=== PATIENT | male | born 1995 | race Caucasian/White ===

== ENCOUNTER → 2018-12-19 | Outpatient (CLI) | payer BC ==
--- NOTE | 2018-12-19 16:18 | US ---
LOWER EXTREMITY VENOUS INSUFFICIENCY SIDE PERFORMED: 1) Color flow is present and patency is documented in the following vessels. No DVT or SVT is noted . EIV Common Femoral Vein Deep Femoral Vein Femoral Vein Popliteal Vein Proximal Calf Veins Greater Saph Vein Upper Small Saph Vein 2) There is venous reflux noted at the following venous levels: Right: Mild reflux noted in CFV, GSV, CFV, DFV and FV. Left: EIV, CFV, GSV, and lower FV IMPRESSION: Venous reflux evident within the right and left lower extremity
[2018-12-20 01:06] LABS: Hepatitis A Antibody IgM Non-Reactive (Non-Reactive); Hepatitis B Core IgM Non-Reactive (Non-Reactive)
[2018-12-20 01:48] LABS: HIV 1 AB Non-Reactive (Non-Reactive); HIV AB P24 Non-Reactive (Non-Reactive); HIV P24 AG Non-Reactive (Non-Reactive)
--- NOTE | 2018-12-20 13:10 | P.ARTDOP ---
Arterial Doppler LOWER EXTREMITY ARTERIAL DOPPLER: DATE OF SERVICE: 12/19/2018 Reason for study: Lower leg swelling and weakness. Doppler waveforms: Multiphasic bilaterally throughout. Pulse volume recording: []. Pressure gradients: None. Ankle-brachial indices: Greater than 1 bilaterally. Toe pressures: [] on the right, [] on the left Impression: Normal study.
== END | disposition home or self-care (01) ==
LOC: RADUSWWP 13:43
PROVIDERS: ATTEND Internal Medicine Infectious Disease
DX: I87.8 Other specified disorders of veins (principal); I99.9 Unspecified disorder of circulatory system; M79.10 Myalgia, unspecified site; Z91.89 Other specified personal risk factors, not elsewhere classified
CPT/HCPCS: 36415; 80074; 85652; 86038; 86618; 86780; 87390; 93922; 93970

== ENCOUNTER 2019-06-17 00:04 | Emergency (ER) | payer BC ==
--- NOTE | 2019-06-17 00:42 | ED ---
General Adult HPI - General Chief complaint: Psychiatric Symptoms Stated complaint: mental health Time Seen by Provider: 06/17/19 00:17 Source: patient, family Mode of arrival: ambulatory Limitations: no limitations - History of Present Illness Initial comments: Dictation was produced using [employer] dictation software. please excuse any grammatical, word or spelling errors. Chief Complaint: This 23-year-old male. He has past medical history of residual schizophrenia. He presents today after suicidal attempt. History of Present Illness: 23-year-old male who is brought into the hospital by parents. Patient attempted to hang himself approximate 3-4 hours prior to arrival. Patient denies any history of suicidal ideation the past. According to parents he has been doing online research as to how to successfully hang himself. He states that he put a belt around his neck and hung himself or couple seconds. He did not follow through with it because he did not want to be brain . Patient is a history of residual schizophrenia. Take psychiatric medications regularly. Patient has no complaints at this time. Denies any neck pain. No shortness of breath. No focal neurologic deficits. The ROS documented in this emergency department record has been reviewed and confirmed by me. Those systems with pertinent positive or negative responses have been documented in the HPI. All other systems are other negative and/or noncontributory. PHYSICAL EXAM: General Impression: Alert and oriented x3, not in acute distress HEENT: Normocephalic atraumatic, extra-ocular movements intact, pupils equal and reactive to light bilaterally, mucous membranes moist. Neck: Atraumatic, no carotid bruit amount of tenderness to palpation Cardiovascular: Heart regular rate and rhythm, S1&S2 audible, no murmurs, rubs or gallops Chest: Lungs clear to auscultation bilaterally, no rhonchi, no wheeze, no rales Abdomen: Bowel sounds present, abdomen soft, non-tender, non-distended, no organomegaly Musculoskeletal: Pulses present and equal in all extremities, no peripheral edema Motor: no focal deficits noted Neurological: CN II-XII grossly intact, no focal motor or sensory deficits noted Skin: Intact with no visualized rashes Psych: Flat affect ED course: Patient is a 23-year-old male presents after attempted hanging. Patient is atraumatic. Physical examination is benign. Vital signs upon arrival are within acceptable limits. Given attempted suicide in past medical history of psychiatric disease patient is considered high risk. Laboratory evaluation obtained. CBC, metabolic panel, urine drug screen and salicylates and acetaminophen are unremarkable. CT of the soft tissues of the neck was obtained showing no acute processes. Radiology did report that there was some kyphotic curvature which could relate to positioning or ligamentous injury. Patient has no pain to his neck. He is moving his neck around freely. Patient observed in emergency Department with out any acute issues. Patient medically cleared for EPS evaluation. Given the patient is asymptomatic. There is no clinical suspicion of genetic neck injury at this time. - Related Data Home Medications Medication Instructions Recorded Confirmed Ziprasidone [Geodon] 60 mg PO BID 06/17/19 06/17/19 Allergies Allergy/AdvReac Type Severity Reaction Status Date / Time No Known Allergies Allergy Verified 06/17/19 08:23 Review of Systems ROS Statement: Those systems with pertinent positive or pertinent negative responses have been documented in the HPI. ROS Other: All systems not noted in ROS Statement are negative. Past Medical History Past Medical History: No Reported History History of Any Multi-Drug Resistant Organisms: None Reported Past Surgical History: No Surgical Hx Reported Past Psychological History: Anxiety, Depression, Schizophrenia Smoking Status: Never smoker Past Alcohol Use History: None Reported Past Drug Use History: None Reported General Exam Limitations: no limitations Course Vital Signs 06/17/19 06/17/19 06/17/19 00:09 13:00 15:59 Temperature 98.9 F 98.2 F 97.7 F Pulse Rate 65 69 73 Respiratory 20 16 16 Rate Blood Pressure 138/93 112/74 130/73 O2 Sat by Pulse 97 97 97 Oximetry Medical Decision Making - Lab Data Result diagrams: 06/17/19 00:55 06/17/19 00:55 Lab Results 06/17/19 06/17/19 06/17/19 Range/Units 00:55 00:55 01:32 WBC 6.3 (3.8-10.6) k/uL RBC 4.82 (4.30-5.90) m/uL Hgb 15.7 (13.0-17.5) gm/dL Hct 43.3 (39.0-53.0) % MCV 89.7 (80.0-100.0) fL MCH 32.6 (25.0-35.0) pg MCHC 36.4 (31.0-37.0) g/dL RDW 12.5 (11.5-15.5) % Plt Count 161 (150-450) k/uL Neutrophils % 67 % Lymphocytes % 21 % Monocytes % 7 % Eosinophils % 3 % Basophils % 1 % Neutrophils # 4.2 (1.3-7.7) k/uL Lymphocytes # 1.3 (1.0-4.8) k/uL Monocytes # 0.4 (0-1.0) k/uL Eosinophils # 0.2 (0-0.7) k/uL Basophils # 0.0 (0-0.2) k/uL Sodium 138 (137-145) mmol/L Potassium 4.2 (3.5-5.1) mmol/L Chloride 98 (98-107) mmol/L Carbon Dioxide 28 (22-30) mmol/L Anion Gap 12 mmol/L BUN 19 (9-20) mg/dL Creatinine 1.01 (0.66-1.25) mg/dL Est GFR (CKD-EPI)AfAm >90 (>60 ml/min/1.73 sqM) Est GFR (CKD-EPI)NonAf >90 (>60 ml/min/1.73 sqM) Glucose 96 (74-99) mg/dL Calcium 10.0 (8.4-10.2) mg/dL Salicylates <1.0 mg/dL Urine Opiates Screen Not Detected (NotDetected) Ur Oxycodone Screen Not Detected (NotDetected) Urine Methadone Screen Not Detected (NotDetected) Ur Propoxyphene Screen Not Detected (NotDetected) Acetaminophen <10.0 ug/mL Ur Barbiturates Screen Not Detected (NotDetected) U Tricyclic Antidepress Not Detected (NotDetected) Ur Phencyclidine Scrn Not Detected (NotDetected) Ur Amphetamines Screen Not Detected (NotDetected) U Methamphetamines Scrn Not Detected (NotDetected) U Benzodiazepines Scrn Not Detected (NotDetected) Urine Cocaine Screen Not Detected (NotDetected) U Marijuana (THC) Screen Not Detected (NotDetected) Disposition Clinical Impression: Suicidal ideation Disposition: TRANSFER TO PSYCH HOSP/UNIT Is patient prescribed a controlled substance at d/c from ED?: No Referrals: Sabrina Snow MD [Primary Care Provider] - 1-2 days Time of Disposition: 06:56
[2019-06-17 01:14] LABS: Acetaminophen <10.0 ug/mL; African American GFR (CKD) >90 (>60 ml/min/1.73 sqM); Anion Gap 12 mmol/L; Blood Urea Nitrogen 19 mg/dL (9-20); Carbon Dioxide 28 mmol/L (22-30); Chloride 98 mmol/L (98-107); Glucose 96 mg/dL (74-99); Potassium 4.2 mmol/L (3.5-5.1); Salicylate <1.0 mg/dL; Sodium 138 mmol/L (137-145)
[2019-06-17 01:25] LABS: Basophils % (A) 1 %; Eosinophils # (A) 0.2 k/uL (0-0.7); Eosinophils % (A) 3 %; HCT 43.3 % (39.0-53.0); HGB 15.7 gm/dL (13.0-17.5); Lymphocytes # (A) 1.3 k/uL (1.0-4.8); Lymphocytes % (A) 21 %; MCH 32.6 pg (25.0-35.0); MCHC 36.4 g/dL (31.0-37.0); MCV 89.7 fL (80.0-100.0); Mean Platelet Volume 7.1; Monocytes # (A) 0.4 k/uL (0-1.0); Monocytes % (A) 7 %; Neutrophils # (A) 4.2 k/uL (1.3-7.7); Neutrophils % (A) 67 %; Platelet Count 161 k/uL (150-450); RBC 4.82 m/uL (4.30-5.90); RDW 12.5 % (11.5-15.5); WBC 6.3 k/uL (3.8-10.6)
[2019-06-17 02:03] LABS: Amphetamine Screen,Urine Not Detected (NotDetected); Barbiturate Screen,Urine Not Detected (NotDetected); Benzodiazepines Screen,Urine Not Detected (NotDetected); Cocaine Screen,Urine Not Detected (NotDetected); Methadone Screen, Urine Not Detected (NotDetected); Opiate Screen,Urine Not Detected (NotDetected); Oxycodone Screen, Urine Not Detected (NotDetected); Phencyclidine Screen,Urine Not Detected (NotDetected); Tricyclic Antidepressant,Urine Not Detected (NotDetected); Urn Cannabinoid Scrn Not Detected (NotDetected)
--- NOTE | 2019-06-17 02:52 | CT ---
EXAMINATION TYPE: CT soft tissue neck w con DATE OF EXAM: 06/17/2019 1:16 AM COMPARISON: None HISTORY: attempted hanging CT DLP: 262.3 mGycm Automated exposure control for dose reduction was used. CONTRAST: CT scan of the neck is performed following with IV Contrast, patient injected with 100mL mL of Isovue 300. Axial images are obtained, coronal and sagittal reformatted images are reviewed. FINDINGS: There is normal branching pattern of the great vessels on the aortic arch. There is normal contrast o pacification of the carotid arteries and jugular veins and the vertebral arteries. Epiglottis is norm al. Subglottic trachea appears normal. Thyroid gland appears normal. There is no pathologic fluid col lection. There is no cervical adenopathy. Parotid glands are symmetric. Submandibular salivary glands are symmetric. Tonsils and adenoids appear normal. There is mild cervic al kyphotic curvature. There is no evidence of cervical spine fracture. Skull base is intact. IMPRESSION: Negative CT scan of the cervical soft tissues. Cervical kyphotic curvature could relate to positioning. Ligamentous injury is possible. No fracture.
[2019-06-17 13:12] VITALS: RESP 16
[2019-06-17 16:05] VITALS: BP 130/73; PULSE 73; TEMP 97.7
== END 2019-06-17 16:00 ==
LOC: EC 00:04
DX: R45.851 Suicidal ideations (principal); F20.9 Schizophrenia, unspecified; Z79.899 Other long term (current) drug therapy
CPT/HCPCS: 82075; 36415; 80048; 85025; 80306; 83520; 80329; 70491; 99285; Q9967

== ENCOUNTER → 2019-11-07 | Outpatient (CLI) | payer BC ==
[~2019-11-07] MED LIST: COSYNTROPIN 0.25 MG VIAL IVP ONE; SODIUM CHLORIDE 0.9% 500 ML 500 ML in EMPTY BAG 1 BAG IV PRN
[2019-11-07 07:28] VITALS: BP 121/76; PULSE 57; RESP 16; TEMP 97.8
== END | disposition home or self-care (01) ==
LOC: PROCWHC3 07:15
PROVIDERS: ATTEND Family Medicine
DX: E27.40 Unspecified adrenocortical insufficiency (principal)
CPT/HCPCS: 82533; 82024; 96374; 36415; J0834

== ENCOUNTER → 2020-10-02 | Outpatient (CLI) | payer BC ==
[2020-10-02 12:39] LABS: Basophils # (A) 0.1 k/uL (0-0.2); Basophils % (A) 1 %; Eosinophils # (A) 0.3 k/uL (0-0.7); Eosinophils % (A) 5 %; HCT 46.6 % (39.0-53.0); HGB 16.4 gm/dL (13.0-17.5); Lymphocytes # (A) 1.1 k/uL (1.0-4.8); Lymphocytes % (A) 19 %; MCH 33.4 pg (25.0-35.0); MCHC 35.2 g/dL (31.0-37.0); Mean Platelet Volume 8.1; Monocytes # (A) 0.4 k/uL (0-1.0); Monocytes % (A) 6 %; Neutrophils # (A) 3.8 k/uL (1.3-7.7); Neutrophils % (A) 66 %; Platelet Count 162 k/uL (150-450); RBC 4.91 m/uL (4.30-5.90); RDW 12.7 % (11.5-15.5); WBC 5.7 k/uL (3.8-10.6)
[2020-10-02 12:48] LABS: African American GFR (CKD) >90 (>60 ml/min/1.73 sqM); Anion Gap 12 mmol/L; Blood Urea Nitrogen 21 mg/dL (9-20); Calcium 9.6 mg/dL (8.4-10.2); Carbon Dioxide 29 mmol/L (22-30); Chloride 97 mmol/L (98-107); Glucose 86 mg/dL (74-99); Non-African American GFR(CKD) >90 (>60 ml/min/1.73 sqM); Potassium 4.4 mmol/L (3.5-5.1); Sodium 138 mmol/L (137-145)
[2020-10-02 13:24] LABS: Appearance,Urine Clear (Clear); Bilirubin,Urine Negative (Negative); Blood,Urine Negative (Negative); Color,Urine Yellow; Glucose,Urine (UA) Negative (Negative); Ketones,Urine Negative (Negative); Leukocyte Esterase,Urine Negative (Negative); Nitrite,Urine Negative (Negative); Protein,Urine Negative (Negative); Specific Gravity,Urine 1.018 (1.001-1.035)
--- NOTE | 2020-10-02 15:55 | XR ---
EXAMINATION TYPE: XR chest 2V DATE OF EXAM: 10/02/2020 COMPARISON: NONE HISTORY: Presurgical, Z01.818, D 41.02 TECHNIQUE: Frontal and lateral views of the chest are obtained. FINDINGS: There is no focal air space opacity, pleural effusion, or pneumothorax seen. The cardiac silhouette size is within normal limits. The osseous structures are intact, there is a spinal curva ture. IMPRESSION: No acute cardiopulmonary process.
== END | disposition home or self-care (01) ==
LOC: LABPAT 11:36
PROVIDERS: ATTEND Urology
DX: Z01.818 Encounter for other preprocedural examination (principal); D41.02 Neoplasm of uncertain behavior of left kidney; R35.0 Frequency of micturition
CPT/HCPCS: 36415; 71046; 80048; 81003; 85025; 87086

== ENCOUNTER 2020-10-09 05:58 | Inpatient (IN) | payer BC ==
[2020-10-07 11:15] VITALS: BMI 19.9
--- NOTE | 2020-10-08 14:49 | P.HPIHPCON ---
History of Present Illness H&P Date: 10/08/20 Chief Complaint: left renal mass This is a 25-year-old male with history of left cystic renal mass. Reviewed images with him discussed with him that the feature of the mass are concerning for malignancy but there is also potential that this could be a benign pathology. Discussed with him the option of excision versus observation, discussed the risk and benefit of each approach. The patient wanted to proceed with an excision. Discussed the option of doing a robotic partial nephrectomy. Discussed with him the risk which includes but not limited to bleeding, infection, injury to nearby organs, potential of converting to a radical nephrectomy. He understood all the risk and agreed to proceed with robotic- assisted left fluoroscopic left partial nephrectomy Consent for Procedure: I have explained the operation/procedure to the patient, including the risks, benefits, side effects, alternative therapies (including not receiving the proposed treatment or service), the likelihood of the patient achieving his/her goals, and potential recuperation problems for the procedure/sedation/analgesia, as well as any blood products, if indicated. I also explained to the patient the risks, benefits and side effects of the alternatives, as well as the risks related to not receiving the proposed procedure, care, treatment, or services. Past Medical History Past Medical History: No Reported History Additional Past Medical History / Comment(s): "sensitive gall bladder"-follows low fat diet., occasional rash on head., Left Renal Mass. History of Any Multi-Drug Resistant Organisms: None Reported Past Surgical History: No Surgical Hx Reported Past Anesthesia/Blood Transfusion Reactions: No Reported Reaction Additional Past Anesthesia/Blood Transfusion Reaction / Comment(s): patient has never received anesthesia Past Psychological History: Anxiety, Depression, Schizophrenia Smoking Status: Never smoker Past Alcohol Use History: None Reported Past Drug Use History: None Reported - Past Family History Mother Family Medical History: No Reported History Medications and Allergies Home Medications Medication Instructions Recorded Confirmed Type Benztropine Mesylate [Cogentin] 1 mg PO DAILY 10/07/20 10/07/20 History LORazepam [Ativan] 2 mg PO BID 10/07/20 10/07/20 History Multivitamin [Multivitamins Adult 1 each PO DAILY 10/07/20 10/07/20 History Gummies] OLANZapine [ZyPREXA] 2.5 mg PO HS 10/07/20 10/07/20 History Protriptyline HCl [Vivactil] 5 mg PO BID 10/07/20 10/07/20 History Allergies Allergy/AdvReac Type Severity Reaction Status Date / Time No Known Allergies Allergy Verified 10/07/20 10:16 Surgical - Exam - General well developed, well nourished, no distress - Eyes PERRL, normal ocular movement - ENT normal nares, normal mucosa - Respiratory normal expansion, normal respiratory effort - Abdomen Abdomen: soft, non tender Assessment and Plan Assessment: 75-year-old male with left cystic mass -Or for robotic-assisted laparoscopic left partial nephrectomy
[~2020-10-09 05:58] MED LIST changes: -COSYNTROPIN 0.25 MG VIAL IVP ONE; +LEVOFLOXACIN 500MG-D5W PMX 500 MG in DEXTROSE/WATER 1 100ML.BAG IVPB PRN; -SODIUM CHLORIDE 0.9% 500 ML 500 ML in EMPTY BAG 1 BAG IV PRN
[2020-10-09] MEDS ORDERED: HEPARIN SODIUM,PORCINE 5,000 UNIT/ML 1 ML VIAL SQ PRN (06:00)
[2020-10-09] MEDS ORDERED: ONDANSETRON 4 MG/2 ML VIAL IVP ONE (06:11)
[2020-10-09] MEDS ORDERED: LIDOCAINE 1% (10MG/ML) FOR IV START INTRADERMA PRN (06:11)
[2020-10-09] MEDS ORDERED: DEXAMETHASONE SOD PHOSPHATE 4 MG/ML 1 ML VIAL IV ONE (06:11)
[2020-10-09] MEDS ORDERED: MIDAZOLAM 2 MG/2 ML VIAL IV PRN (06:11)
[2020-10-09] MEDS: LACTATED RINGERS 1,000 ML IV SCH ×2 (06:46→07:00)
[2020-10-09] MEDS ORDERED: NEOSTIGMINE 1 MG/ML 10 ML VIAL ONE (07:40)
[2020-10-09] MEDS ORDERED: SUCCINYLCHOLINE CHLORIDE 100 MG/5 ML SYR IV ONE (07:40)
[2020-10-09] MEDS ORDERED: MANNITOL 25% 12.5 GM/50 ML VIAL ONE (07:40)
[2020-10-09] MEDS ORDERED: fentaNYL (PF) 50 MCG/ML 2 ML AMP ONE (07:40)
[2020-10-09] MEDS ORDERED: MIDAZOLAM 2 MG/2 ML VIAL ONE (07:40)
[2020-10-09] MEDS ORDERED: PROPOFOL 10 MG/ML 20 ML VIAL IV ONE (07:40)
[2020-10-09] MEDS ORDERED: LIDOCAINE 1% INJ 10MG/ML (20 ML MDV) ONE (07:40)
[2020-10-09] MEDS ORDERED: GLYCOPYRROLATE 0.2 MG/ML 2 ML VIAL ONE (07:40)
[2020-10-09] MEDS ORDERED: ROCURONIUM 10 MG/ML (10 ML VIAL) IV ONE (07:40)
[2020-10-09] MEDS ORDERED: BUPIVACAINE (PF) 0.5% 30 ML VIAL SQ ONE ×2 (08:51)
[2020-10-09] MEDS ORDERED: LACTATED RINGERS 1,000 ML IV ONE (10:04)
--- NOTE | 2020-10-09 11:10 | P.OP ---
Date of Procedure: 10/09/20 Preoperative Diagnosis: Left renal mass Postoperative Diagnosis: Same Procedure(s) Performed: Robotic-assisted laparoscopic partial nephrectomy on the left, intraoperative ultrasound Implants: none Anesthesia: VARGAS Surgeon: Jose J Amor Service Vehicle Operator #1: Landy Palacios Estimated Blood Loss (ml): 100 Pathology: other (left renal mass) Condition: stable Disposition: PACU Indications for Procedure: This is a 25-year-old male with history of left cystic renal mass. Reviewed images with him discussed with him that the feature of the mass are concerning for malignancy but there is also potential that this could be a benign pa thology. Discussed with him the option of excision versus observation, discussed the risk and benefit of each approach. The patient wanted to proceed with an excision. Discussed the option of doing a robotic partial nephrectomy. Discussed with him the risk which includes but not limited to bleeding, infection, injury to nearby organs, potential of converting to a radical nephrectomy. He understood all the risk and agreed to proceed with robotic- assisted left fluoroscopic left partial nephrectomy Operative Findings: Left cystic renal mass Description of Procedure: The patient was taken to the operating room . General anesthesia was induced. He was prepped and draped in sterile fashion, and was placed in modified flank position . All pressure points were padded. The abdominal insufflation was achieved with the Veress needle. A 8 mm camera port was placed. Robotic trocars and accounting administrative assistant ports were placed under direct vision.. The robot was docked into place. The colon was mobilized medially by incising along the white line of Toldt. Next the spleen and the pancreas was retracted off the kidney.Next the ureter was retracted anteriorly off the psoas muscle. Dissection proceeded cranially towards the renal hilum. At this point the renal artery and the vein were dissected. Of note patient had 2 renal artery, single renal vein The vessels were dissected in preparation for clamping. The gerota's fat over the kidney was incised, and the fat was mobilized along the mid and lower pole, exposing the tumor. Using the intraoperative ultrasound the depths and the edges of the tumor were marked. Next the vessels were clamped, using 2 bulldogs on the artery main artery and a single bulldog on the other renal artery . Next attention was carried to the tumor the tumor was excised sharply using the monopolar scissors. The tumor bed was closed in 2 layers using 3-0V lock for the deep layer and 2-0 V lock for the outer layer using the sliding clip technique. At this time the clamps were removed, there was no evidence of bleeding. Hemostatic agent were applied to the tumor. A 10-Irish ANAYELI was placed through the prograsp port. . The drain was secured using 2-0 silk. The robot was then de-docked and the specimen was then removed by extending the accounting administrative assistant port. Fascia was closed with one layer using #1 PDS, Skin was closed with subcuticular sutures and dermabond. The patient was awoken from general anesthesia in stable condition. Please refer to the final pathology report for final diagnosis
[2020-10-09] MEDS ORDERED: HYDROcodone/APAP 5-325MG 1 EACH TAB PO PRN (11:12)
[2020-10-09] MEDS: HYDROmorphone 0.5 MG/0.5 ML SYRINGE IVP PRN ×2 (11:54→12:30)
[2020-10-09] MEDS ORDERED: KETOROLAC 15 MG/ML 1 ML VIAL IVP ONE (12:33)
[2020-10-09] MEDS: KETOROLAC 15 MG/ML 1 ML VIAL IVP SCH ×3 (14:06→23:19)
[2020-10-09] MEDS: HEPARIN SODIUM,PORCINE 5,000 UNIT/ML 1 ML VIAL SQ SCH ×2 (15:20→23:19)
[2020-10-09] MEDS: D5-0.45% NACL WITH KCL 20MEQ/L 1,000 ML IV SCH ×2 (15:20→21:14)
[2020-10-09 20:38] LABS: Basophils % (A) 0 %; Eosinophils # (A) 0.1 k/uL (0-0.7); Eosinophils % (A) 1 %; HCT 41.3 % (39.0-53.0); HGB 14.9 gm/dL (13.0-17.5); Lymphocytes # (A) 0.6 k/uL (1.0-4.8); Lymphocytes % (A) 7 %; MCH 34.2 pg (25.0-35.0); MCHC 36.2 g/dL (31.0-37.0); MCV 94.5 fL (80.0-100.0); Mean Platelet Volume 7.7; Monocytes # (A) 0.8 k/uL (0-1.0); Monocytes % (A) 9 %; Neutrophils # (A) 6.8 k/uL (1.3-7.7); Neutrophils % (A) 81 %; Platelet Count 142 k/uL (150-450); RBC 4.37 m/uL (4.30-5.90); WBC 8.5 k/uL (3.8-10.6)
[2020-10-09] MEDS ORDERED: OLANZapine 2.5 MG TAB PO SCH (21:00)
[2020-10-09] MEDS: LORazepam 1 MG TAB PO SCH (21:13)
[2020-10-10] MEDS: D5-0.45% NACL WITH KCL 20MEQ/L 1,000 ML IV SCH ×2 (04:36→12:39)
[2020-10-10] MEDS: KETOROLAC 15 MG/ML 1 ML VIAL IVP SCH ×3 (06:23→17:39)
[2020-10-10] MEDS ORDERED: BENZTROPINE MESYLATE 1 MG TAB PO SCH (09:00)
[2020-10-10] MEDS: LORazepam 1 MG TAB PO SCH (10:22)
[2020-10-10] MEDS: HEPARIN SODIUM,PORCINE 5,000 UNIT/ML 1 ML VIAL SQ SCH ×2 (10:22→16:02)
[2020-10-10 10:47] LABS: African American GFR (CKD) 145.9 (60.0-200.0); Anion Gap 5.9 mmol/L (4.00-12.00); BUN/Creat Ratio 8.75 Ratio (12.00-20.00); Calcium 8.5 mg/dL (8.7-10.3); Carbon Dioxide 28.1 mmol/L (21.6-31.8); Non-African American GFR(CKD) 125.9 (60.0-200.0); Potassium 3.7 mmol/L (3.5-5.5)
[2020-10-10 12:12] LABS: HCT 45.8 % (39.0-53.0); HGB 15.5 gm/dL (13.0-17.5); MCH 32.5 pg (25.0-35.0); MCHC 33.8 g/dL (31.0-37.0); Mean Platelet Volume 7.9; Platelet Count 147 k/uL (150-450); RBC 4.78 m/uL (4.30-5.90); RDW 12.2 % (11.5-15.5); WBC 6.9 k/uL (3.8-10.6)
[2020-10-10 12:21] VITALS: BP 111/73; PULSE 104; RESP 17; TEMP 97.9
--- NOTE | 2020-10-10 17:02 | P.DS ---
Providers Date of admission: 10/09/20 05:58 Attending physician: Jose J Amor MD Primary care physician: [facility] Course: This is a 25-year-old male with history of left-sided renal mass. He underwent a robotic-assisted laparoscopic left partial nephrectomy on October 09. No complication during the case. Please see op note dated October 09 for for surgery details. The patient was admitted to the hospital postoperatively, he did well in the postoperative period, his hemoglobin was stable. His ANAYELI drain and catheter were removed on postoperative day #1. He was discharged home on postoperative day #1. At time of discharge He was tolerating a diet, ambulating, and pain was well-controlled. His abdominal exam was benign, his incision was clean dry and intact Plan - Discharge Summary Discharge Rx Participant: Yes New Discharge Prescriptions: New RX: Ibuprofen 600 mg PO Q8H PRN #20 tab PRN Reason: Pain traMADol HCl [Ultram] 50 mg PO Q6HR PRN 3 Days #12 tab PRN Reason: Pain No Action LORazepam [Ativan] 2 mg PO BID Benztropine Mesylate [Cogentin] 1 mg PO DAILY Protriptyline HCl [Vivactil] 5 mg PO BID OLANZapine [ZyPREXA] 2.5 mg PO HS Multivitamin [Multivitamins Adult Gummies] 1 each PO DAILY Discharge Medication List Benztropine Mesylate [Cogentin] 1 mg PO DAILY 10/07/20 [History] LORazepam [Ativan] 2 mg PO BID 10/07/20 [History] Multivitamin [Multivitamins Adult Gummies] 1 each PO DAILY 10/07/20 [History] OLANZapine [ZyPREXA] 2.5 mg PO HS 10/07/20 [History] Protriptyline HCl [Vivactil] 5 mg PO BID 10/07/20 [History] RX: Ibuprofen 600 mg PO Q8H PRN #20 tab 10/10/20 [Rx] traMADol HCl [Ultram] 50 mg PO Q6HR PRN 3 Days #12 tab 10/10/20 [Rx] Follow up Appointment(s)/Referral(s): Jose J Amor MD [STAFF PHYSICIAN] - 1 Week (patient will have to schedule own appt.office is closed) Patient Instructions/Handouts: Ibuprofen (By mouth), Tramadol (By mouth) Activity/Diet/Wound Care/Special Instructions: No heavy lifting or straining for 4 weeks Increase fluid intake You may shower tonight, but no baths limit your activity for the next week
== END 2020-10-10 18:40 | disposition home or self-care (01) | DRG 658 ==
LOC: 2ORMAIN 05:58 → 5NMEDONC 12:17
PROVIDERS: ADMIT Urology; ATTEND Urology
PROC: 8E0W4CZ Robotic Assisted Procedure of Trunk Region, Percutaneous Endoscopic Approach (ICD-10-PCS; 2020-10-09)
PROC: 0TB14ZZ Excision of Left Kidney, Percutaneous Endoscopic Approach (ICD-10-PCS; principal; 2020-10-09 07:30)
DX: C64.2 Malignant neoplasm of left kidney, except renal pelvis (principal); F20.9 Schizophrenia, unspecified; F41.9 Anxiety disorder, unspecified; F32.9 Major depressive disorder, single episode, unspecified; Z79.899 Other long term (current) drug therapy
CPT/HCPCS: 80048; 85025; 85027; 86850; 86900; 86901; 88307

== ENCOUNTER → 2021-07-28 | Outpatient (CLI) | payer BC ==
--- NOTE | 2021-07-28 11:41 | MR ---
MRI kidney with and without contrast HISTORY: Kidney cancer, C 64.9 Multiplanar multisequence and postcontrast images obtained through the kidneys following 7 cc Gadavis t IV. Correlation to MRI abdomen 08/04/2020 There is motion artifact on the exam. At the lower pole the left kidney there is a contour abnormality likely due to resection from patient 's previously identified mass. No mass is identified on the current exam. There is no abnormal enhanc ement. No hydronephrosis or perinephric fluid. No retroperitoneal adenopathy. No other significant interval change. Lung bases show no significant fluid. Aorta shows normal calibe r and enhancement. Liver, spleen, pancreas within normal limits. Multiple filling defects present wit hin the gallbladder consistent with cholelithiasis. IMPRESSION: Postop changes. Cholelithiasis.
--- NOTE | 2021-07-28 11:55 | XR ---
EXAMINATION TYPE: XR chest 2V DATE OF EXAM: 07/28/2021 COMPARISON: Chest x-ray 10/02/2020 HISTORY: C64.9 renal neoplasm TECHNIQUE: Frontal and lateral views of the chest are obtained. FINDINGS: There is no focal air space opacity, pleural effusion, or pneumothorax seen. The cardiac silhouette size is within normal limits. The osseous structures are intact, there is a spinal curva ture, pectus deformity. IMPRESSION: No acute cardiopulmonary process.
== END | disposition home or self-care (01) ==
LOC: RADMRIMAIN 09:18
PROVIDERS: ATTEND Urology
DX: C64.9 Malignant neoplasm of unspecified kidney, except renal pelvis (principal)
CPT/HCPCS: 71046; 74183; A9585

== ENCOUNTER → 2023-07-21 | Outpatient (CLI) | payer BC ==
--- NOTE | 2023-07-21 14:36 | XR ---
EXAMINATION TYPE: XR chest 2V DATE OF EXAM: 07/21/2023 COMPARISON: 06/16/2022 TECHNIQUE: PA and lateral views submitted. HISTORY: Malignant neoplasm kidney FINDINGS: The lungs are clear and there is no pneumothorax, pleural effusion, or focal pneumonia. Heart size normal and no overt failure. Osseous structures demonstrate hypertrophic and degenerative changes of the spine. IMPRESSION: 1. No acute process.
--- NOTE | 2023-07-21 16:18 | US ---
EXAMINATION TYPE: US kidneys/renal and bladder DATE OF EXAM: 07/21/2023 COMPARISON: NONE CLINICAL INDICATION: Male, 27 years old with history of C642 RENAL CA LEFT; hx of left renal cancer, removed in 2020 EXAM MEASUREMENTS: Right Kidney: 10.3x4.2x5.4 cm Left Kidney: 11.1x5.8x5.5 cm Right Kidney: No hydronephrosis or masses seen, inferior pole slightly obscured Left Kidney: limited visualization due to bowel and rib shadows. Abnormal contour of inferior kidney likely from post op changes Bladder: wnl, not fully distended Bilateral Jets seen: Yes No suspicious masses identified. IMPRESSION: No suspicious change to suggest recurrent renal cancer.
== END | disposition home or self-care (01) ==
LOC: RADUSWWP 14:05
PROVIDERS: ATTEND Urology
DX: Z85.528 Personal history of other malignant neoplasm of kidney (principal)
CPT/HCPCS: 71046; 76770

== ENCOUNTER → 2024-07-31 | Outpatient (CLI) | payer BC ==
--- NOTE | 2024-07-31 16:58 | US ---
EXAMINATION TYPE: US kidneys/renal and bladder DATE OF EXAM: 07/31/2024 COMPARISON: Renal ultrasound 07/21/2023, MR kidney 06/16/2022 CLINICAL INDICATION: Male, 28 years old with history of C64.2 LEFT RENAL CANCER; Patient denies any s igns or symptoms at this time TECHNIQUE: Grayscale imaging of the bilateral kidneys and urinary bladder: FINDINGS: EXAM MEASUREMENTS: Right Kidney: 11.2 x 4.8 x 5.5 cm Left Kidney: 12.1 x 5.7 x 4.2 cm Post Void Residual Volume: NA mL Right Kidney: wnl, no evidence for hydronephrosis, mass or renal calculus. Left Kidney: wnl, no evidence for hydronephrosis, mass or renal calculus. ; Irregular / lobulated low er pole otherwise WNL Bladder: wnl Bilateral Jets seen: Yes Normal Post Void Residual: NA There is no evidence for hydronephrosis at this point in time. Corticomedullary differentiation is m aintained bilaterally. No nephrolithiasis is seen. Postsurgical changes of the left renal inferior po le. No masses are identified to suggest recurrence. The urinary bladder is anechoic. IMPRESSION: Postsurgical changes of the left renal lower pole without ultrasound evidence for recurrent renal can cer. [facility], , 07/31/2024 4:55 PM
--- NOTE | 2024-07-31 19:11 | XR ---
EXAMINATION TYPE: XR chest 2V DATE OF EXAM: 07/31/2024 5:16 PM COMPARISON: Previous chest radiograph 07/21/2023. CLINICAL INDICATION: Male, 28 years old with history of C64.2 LEFT RENAL CANCER; [facility] TECHNIQUE: XR chest 2V Frontal and lateral views of the chest. FINDINGS: Lungs/Pleura: There is no evidence of pleural effusion, focal consolidation, or pneumothorax. Pulmonary vascularity: Unremarkable. Heart/mediastinum: Cardiomediastinal silhouette is unremarkable. Musculoskeletal: No acute osseous pathology. Other findings: None IMPRESSION: No acute cardiopulmonary disease/process. [facility], , 07/31/2024 7:09 PM
== END | disposition home or self-care (01) ==
LOC: RADUSWWP 16:28
PROVIDERS: ATTEND Urology
DX: C64.2 Malignant neoplasm of left kidney, except renal pelvis (principal)
CPT/HCPCS: 71046; 76770